=== PATIENT | male | born 1985 | race Caucasian/White ===

== ENCOUNTER 2020-06-02 14:24 | Observation (INO) ==
[2020-06-02] MEDS ORDERED: Aspirin 81 MG TAB.CHEW PO ONE (14:48)
[2020-06-02 14:52] LABS: Basophils # 0.1 K/mcL (0.0-0.2); Basophils % 0.7 %; Eosinophils # 0.3 K/mcL (0.0-0.6); Eosinophils % 4.6 %; Hematocrit 47.4 % (37.5-50.1); Hemoglobin 15.9 g/dL (12.9-16.9); Immature Granulocytes % 0.3 % (0-4); Lymphocytes # 2.3 K/mcL (0.6-4.6); Lymphocytes % 33.5 %; Mean Corpuscular HGB Conc 33.5 g/dL (31.6-35.5); Mean Corpuscular Hemoglobin 31.5 pg (28.0-33.3); Mean Corpuscular Volume 93.9 fL (83.0-100.0); Mean Platelet Volume 10.3 fL (9.4-12.4); Monocytes # 0.8 K/mcL (0.0-1.3); Monocytes % 10.8 %; Neutrophils # 3.5 K/mcL (1.6-8.9); Platelet Count 244 K/mcL (140-400); Red Blood Count 5.05 M/mcL (4.19-5.50); Red Cell Distribution Width 13.2 % (11.5-14.5); Segmented Neutrophils % 50.1 %
[2020-06-02] MEDS: Nitroglycerin 0.4 MG TAB.SUBL SL PRN ×2 (14:59→21:00)
[2020-06-02 15:00] LABS: Prothrombin Time 10.8 Seconds (9.4-12.1)
[2020-06-02 15:02] LABS: Activated Partial Thrombo Time 31.2 Seconds (26.0-36.0)
[2020-06-02 15:10] LABS: BUN/Creatinine Ratio 16 (6-26); Blood Urea Nitrogen 16 mg/dL (6-20); Calcium 9.7 mg/dL (8.6-10.3); Carbon Dioxide 27 mEq/L (23-29); Chloride 103 mEq/L (98-107); Glucose 86 mg/dL (70-105); Lipase 130 Units/L (11-82); Osmolality,Calculated 282 (280-300); Sodium 136 mEq/L (136-145); Troponin I < 0.03 ng/mL (< 0.04); eGFR For African Americans > 60 (> 60); eGFR For Non-African Americans > 60 (> 60)
[2020-06-02 16:11] LABS: Adenovirus Not Detected (Not Detect); Bordetella Pertussis Not Detected (Not Detect); Chlamydophila pneumoniae Not Detected (Not Detect); Coronavirus 229E Not Detected (Not Detect); Coronavirus HKU1 Not Detected (Not Detect); Coronavirus NL63 Not Detected (Not Detect); Coronavirus OC43 Not Detected (Not Detect); Human Metapneumovirus Not Detected (Not Detect); Human Rhinovirus/Enterovirus Not Detected (Not Detect); Influenza A Subtype 2009 H1 Not Detected (Not Detect); Influenza B Not Detected (Not Detect); Mycoplasma pneumoniae Not Detected (Not Detect); Parainfluenza Virus 1 Not Detected (Not Detect); Parainfluenza Virus 2 Not Detected (Not Detect); Parainfluenza Virus 3 Not Detected (Not Detect); Parainfluenza Virus 4 Not Detected (Not Detect); Respiratory Syncytial Virus Not Detected (Not Detect); SARS-CoV-2 Not Detected (Not Detect)
[2020-06-02] MEDS ORDERED: Naloxone 0.4 MG/ML INJ IVP PRN (17:01)
[2020-06-02] MEDS ORDERED: Ondansetron 4 MG/2 ML VIAL IVP PRN (17:01)
[2020-06-02] MEDS ORDERED: *HR* HYDROcodone/Acet 5/325 mg TABLET PO PRN (17:01)
[2020-06-02] MEDS ORDERED: Acetaminophen 325 MG TABLET PO PRN (17:01)
[2020-06-02] MEDS ORDERED: Perflutren Lipid Microsphere 1.3 ML in 0.9 % Sodium Chloride 8.7 ML IVP PRN (17:15)
[2020-06-02] MEDS: predniSONE 20 MG TABLET PO SCH (17:59)
[2020-06-02] MEDS: Ipratropium/Albuterol Neb 3 ML IH SCH ×2 (18:35→22:41)
[2020-06-02] MEDS: *HR* Heparin 5,000 UNIT/ML VIAL SQ SCH (20:52)
[2020-06-02] MEDS ORDERED: BuPROPion SR (12 HR) 150 MG TABLET PO SCH (21:00)
[2020-06-02] MEDS: hydrALAZINE 25 MG TABLET PO SCH (23:40)
[2020-06-03] MEDS: Ipratropium/Albuterol Neb 3 ML IH SCH ×4 (03:45→22:04)
[2020-06-03 06:01] LABS: Basophils % 0.3 %; Eosinophils % 0.2 %; Hematocrit 46.9 % (37.5-50.1); Hemoglobin 15.3 g/dL (12.9-16.9); Immature Granulocytes % 0.4 % (0-4); Lymphocytes # 1.6 K/mcL (0.6-4.6); Lymphocytes % 17.1 %; Mean Corpuscular HGB Conc 32.6 g/dL (31.6-35.5); Mean Corpuscular Hemoglobin 30.8 pg (28.0-33.3); Mean Corpuscular Volume 94.4 fL (83.0-100.0); Mean Platelet Volume 10.4 fL (9.4-12.4); Monocytes # 0.5 K/mcL (0.0-1.3); Monocytes % 5.8 %; Neutrophils # 7.1 K/mcL (1.6-8.9); Platelet Count 267 K/mcL (140-400); Red Blood Count 4.97 M/mcL (4.19-5.50); Red Cell Distribution Width 13.1 % (11.5-14.5); Segmented Neutrophils % 76.2 %; White Blood Count 9.3 K/mcL (4.3-11.1)
[2020-06-03 06:18] LABS: BUN/Creatinine Ratio 16 (6-26); Blood Urea Nitrogen 16 mg/dL (6-20); Calcium 9.3 mg/dL (8.6-10.3); Carbon Dioxide 25 mEq/L (23-29); Chloride 104 mEq/L (98-107); Chol/HDL Ratio 5.5 (0-4.9); Cholesterol 226 mg/dL (< 200); Glucose 103 mg/dL (70-105); HDL Cholesterol 41 mg/dL (40-59); LDL Cholesterol,Calculated 156 mg/dL (< 100); Magnesium 2.1 mg/dL (1.6-2.6); Osmolality,Calculated 283 (280-300); Potassium 4.4 mEq/L (3.5-5.1); Sodium 136 mEq/L (136-145); Thyroid Stimulating Hormone 0.949 mcIU/mL (0.340-5.600); Triglycerides 143 mg/dL (< 150); eGFR For African Americans > 60 (> 60); eGFR For Non-African Americans > 60 (> 60)
[2020-06-03] MEDS ORDERED: *HR* Heparin 5,000 UNIT/ML VIAL IVP PRN ×2 (08:10)
[2020-06-03] MEDS ORDERED: *HR* Heparin 5,000 UNIT/ML VIAL IVP ONE (08:10)
[2020-06-03] MEDS ORDERED: Heparin 25,000UNIT/250ML 1/2NS 25,000 UNIT/250 ML IV.SOLN IVC SCH (08:15)
[2020-06-03 08:51] LABS: Hematocrit 45.6 % (37.5-50.1); Hemoglobin 15.2 g/dL (12.9-16.9); Mean Corpuscular HGB Conc 33.3 g/dL (31.6-35.5); Mean Corpuscular Hemoglobin 31.4 pg (28.0-33.3); Mean Corpuscular Volume 94.2 fL (83.0-100.0); Mean Platelet Volume 10.5 fL (9.4-12.4); Platelet Count 235 K/mcL (140-400); Red Blood Count 4.84 M/mcL (4.19-5.50); White Blood Count 10.6 K/mcL (4.3-11.1)
[2020-06-03 08:54] LABS: Heparin anti-factor XA UFH < 0.04 IU/mL (0.30-0.70); Prothrombin Time 11.2 Seconds (9.4-12.1)
[2020-06-03] MEDS ORDERED: Isosorbide MONOnitrate (24 HR) 30 MG TAB.ER.24H PO SCH (09:00)
[2020-06-03] MEDS: predniSONE 20 MG TABLET PO SCH (09:02)
[2020-06-03] MEDS: Spironolactone 25 MG TABLET PO SCH (09:02)
[2020-06-03] MEDS: hydrALAZINE 25 MG TABLET PO SCH ×3 (09:02→23:30)
[2020-06-03] MEDS: Aspirin 81 MG TAB.CHEW PO SCH (09:02)
[2020-06-03] MEDS: BuPROPion SR (12 HR) 150 MG TABLET PO SCH (09:02)
[2020-06-03] MEDS: Losartan/HCTZ 50-12.5 TABLET PO SCH (09:02)
[2020-06-03] MEDS: Metoprolol XL (24 HR) Succ 25 MG TAB.ER.24H PO SCH (09:02)
[2020-06-03] MEDS: Nicotine 21 MG PATCH.TD24 TD SCH (09:04)
[2020-06-03] MEDS: Budesonide/Formoterol 80/4.5 1 PUFF INH IH SCH ×2 (10:53→22:04)
[2020-06-03 11:34] LABS: Estimated Average Glucose 103 mg/dl; Hemoglobin A1C 5.2 %
[2020-06-03] MEDS ORDERED: *HR* Midazolam HCl 2 MG/2 ML VIAL ONE (13:07)
[2020-06-03] MEDS ORDERED: 0.9 % Sodium Chloride 2,000 ML ONE (13:08)
[2020-06-03] MEDS ORDERED: ISOVUE-370 200 ML INFUS..BTL ONE (13:08)
[2020-06-03] MEDS ORDERED: Nitroglycerin 1,000 MCG/10 ML VIAL IV ONE (13:08)
[2020-06-03] MEDS ORDERED: Heparin 1,000 UNITS/500 mL 500 ML ONE (13:08)
[2020-06-03] MEDS ORDERED: *HR* FentaNYL (PF) 100 MCG/2 ML VIAL ONE (13:08)
[2020-06-03] MEDS ORDERED: *HR* Heparin 10,000 UNIT/10 ML VIAL ONE (13:08)
[2020-06-03] MEDS: *HR* Heparin 5,000 UNIT/ML VIAL SQ SCH (19:43)
[2020-06-04] MEDS: Ipratropium/Albuterol Neb 3 ML IH SCH (03:42)
[2020-06-04 07:38] VITALS: BP 125/81
[2020-06-04] MEDS: Losartan/HCTZ 50-12.5 TABLET PO SCH (08:20)
[2020-06-04] MEDS: Metoprolol XL (24 HR) Succ 25 MG TAB.ER.24H PO SCH (08:21)
[2020-06-04] MEDS: Nicotine 21 MG PATCH.TD24 TD SCH (08:21)
[2020-06-04] MEDS: hydrALAZINE 25 MG TABLET PO SCH (08:21)
[2020-06-04] MEDS: Spironolactone 25 MG TABLET PO SCH (08:21)
[2020-06-04] MEDS: predniSONE 20 MG TABLET PO SCH (08:21)
[2020-06-04] MEDS: BuPROPion SR (12 HR) 150 MG TABLET PO SCH (08:21)
[2020-06-04] MEDS: Aspirin 81 MG TAB.CHEW PO SCH (08:21)
== END 2020-06-04 10:38 | disposition home or self-care (01) ==
LOC: 3BNU 14:24 → EMEROOARM 14:24 → SUATTDRO 16:34 → 3BNU 17:06
PROVIDERS: ADMIT Internal Medicine; ATTEND Internal Medicine